=== PATIENT | female | born 1955 | race Caucasian/White ===

== ENCOUNTER → 2017-02-18 | Outpatient (CLI) | payer OTHER ==
[~2017-02-18] MED LIST: NO MEDICATIONS; VITAMIN B 12
--- NOTE | ~2017-02-18 | BD1 ---
[facility] A Service of [facility] [place] RADIOLOGY TEXT RESULTS PATIENT: KATE LIN LOCATION: [facility] : 55 UNIT #: [id number] AGE: [address]: Anthony Mark MD SEX: F ORDER DR: [id number] [place] [id number] O MR#: [id number] Acc #: [id number] NAME: KATE LIN : 1955 SEX: F STUDY DATE/TIME: 02/18/2017 8:16 UNIT: [facility] ROOM: STUDY DESCRIPTION: BD Dexa Bone Dens 1+ Site Attending Physician: Anthony Mark M.D. Referring Physician: Anthony Mark M.D. Ordering Physician: Anthony Mark M.D. Primary Care Physician: Anthony Mark M.D. MEDICAL IMAGING REPORT This report is preliminary unless electronic signature is present. EXAM Bone densitometry, 02/18/2017. INDICATION Routine postmenopausal screening. FINDINGS Bone mineral density lumbar spine (L1-L4)is calculated at 1.039 g/cm2 this correlates with a T score of -1.2 and a Z-score of -0.2. This is classified as osteopenia. The right femoral neck is calculated at 0.868 g/cm2. This correlates with a T-score of -1.2 and a Z-score of -0.1. This is classified as osteopenia. The bone mineral density of the left femoral neck is calculated at 0.633 g/cm2. There is correlates with a T-score -2.9 and a Z-score of -1.8. This is classified as osteoporosis. IMPRESSION Osteoporosis. Dictated by... Dougie Armando M.D. THIS IS AN ELECTRONICALLY VERIFIED REPORT Dougie Armando M.D. at 02/19/2017 3:07 PM CHARLEE/booker TD: 02/19/2017 11:53 JOB #: [id number] [facility] A Service of [facility] [place] RADIOLOGY TEXT RESULTS PATIENT: KATE LIN LOCATION: [facility] #: [id number] : 55 UNIT #: [id number] AGE: [address]: Anthony Mark MD SEX: F ORDER DR: MEDICAL IMAGING REPORT Page 1 of 1
--- NOTE | ~2017-02-18 | US5 ---
[facility] A Service [facility] RADIOLOGY TEXT RESULTS PATIENT: KATE LIN LOCATION: [facility] : 55 UNIT #: [id number] AGE: [address]: Anthony Mark MD SEX: F ORDER DR: [id number] [place] [id number] O MR#: [id number] Acc #: [id number] NAME: KATE LIN : 1955 SEX: F STUDY DATE/TIME: 02/18/2017 8:22 UNIT: [facility] ROOM: STUDY DESCRIPTION: US Abdominal Complete Attending Physician: Anthony Mark M.D. Referring Physician: Anthony Mark M.D. Ordering Physician: Anthony Mark M.D. Primary Care Physician: Anthony Mark M.D. MEDICAL IMAGING REPORT This report is preliminary unless electronic signature is present. EXAM Abdominal ultrasound INDICATIONS Initial Medicare annual wellness visit. The patient reports no current symptoms. PROCEDURE Escobar-scale and Doppler imaging of the abdomen COMPARISON None FINDINGS Pancreas obscured by bowel gas and not well seen. No liver mass seen on submitted images. Liver measures 14.3 cm in length. Right kidney measures 8 cm. Unremarkable gallbladder. Common duct is obscured, and not well seen. Visualized portions of the aorta and inferior vena cava are unremarkable. Left kidney measures 9.6 cm in length. No hydronephrosis. Spleen measures 9 cm. IMPRESSION Pancreas and common bile duct are obscured by bowel gas and not well seen. Otherwise negative abdominal ultrasound. Dictated by... Musa Heart M.D. THIS IS AN ELECTRONICALLY VERIFIED REPORT Musa Heart M.D. at 02/19/2017 7:11 AM EED/to [facility] A Service [facility] RADIOLOGY TEXT RESULTS PATIENT: KATE LIN LOCATION: [facility] : 55 UNIT #: [id number] AGE: [address]: Anthony Mark MD SEX: F ORDER DR: TD: 02/18/2017 15:56 JOB #: [id number] MEDICAL IMAGING REPORT Page 1 of 1
== END | disposition home or self-care (01) ==
LOC: SGUS 07:57
DX: Z13.820 Encounter for screening for osteoporosis (principal); M81.0 Age-related osteoporosis without current pathological fracture
CPT/HCPCS: 76700; 77080

== ENCOUNTER → 2017-03-18 | Outpatient (CLI) | payer OTHER ==
--- NOTE | ~2017-03-18 | MY11 ---
[facility] A Service of [facility] RADIOLOGY TEXT RESULTS PATIENT: KATE LIN LOCATION: [facility] : 55 UNIT #: [id number] AGE: [address]: Anthony Mark MD SEX: F ORDER DR: [id number] [place] [id number] O MR#: [id number] Acc #: [id number] NAME: KATE LIN : 1955 SEX: F STUDY DATE/TIME: 03/18/2017 13:22 UNIT: [facility] ROOM: STUDY DESCRIPTION: MY Mammogram Screening Dig Josh Attending Physician: Anthony Mark M.D. Referring Physician: Anthony Mark M.D. Ordering Physician: Anthony Mark M.D. Primary Care Physician: Anthony Mark M.D. MEDICAL IMAGING REPORT This report is preliminary unless electronic signature is present. EXAM Digital screening mammogram, 03/18/2017 HISTORY 61-year-old woman, positive family history, mom, maternal aunt. Annual screen. Comparison mammograms date to 09/05/2009, with most recent 02/17/2016. FINDINGS Digital imaging of each breast was completed utilizing a two-view examination of each breast in craniocaudal and mediolateral-oblique projections. Review and interpretation of digital mammograms include a second review in conjunction with FDA-approved CAD device. There is a normal parenchymal presentation bilaterally consistent with the patient's age. There are no breast masses imaged and no parenchymal asymmetry is visualized. There are no suspicious microcalcifications and I see no focal architectural disturbance. IMPRESSION Negative screening digital mammogram. One-year followup recommended. Patients over the age of 40 are entered into a reminder system with target due date for the next mammogram. A result letter will also be sent to the patient. BIRADS: 1 Negative Dictated by... Armando Valenzuela M.D. [facility] A Service of [facility] RADIOLOGY TEXT RESULTS PATIENT: KATE LIN LOCATION: [facility] : 55 UNIT #: [id number] AGE: [address]: Anthony Mark MD SEX: F ORDER DR: THIS IS AN ELECTRONICALLY VERIFIED REPORT Armando Valenzuela M.D. at 03/19/2017 8:08 AM YOSELYN/ev TD: 03/18/2017 20:11 JOB #: [id number] MEDICAL IMAGING REPORT Page 1 of 1
== END | disposition home or self-care (01) ==
LOC: SMAM 12:17
DX: Z12.31 Encounter for screening mammogram for malignant neoplasm of breast (principal); Z80.3 Family history of malignant neoplasm of breast
CPT/HCPCS: G0202